=== PATIENT | male | born 1930 | race Caucasian/White ===

== ENCOUNTER → 2017-03-11 | Outpatient (CLI) | payer MEDICARE ==
[~2017-03-11] MED LIST: /TAMS4CA OR; ACET65TA OR; ADVI200C5 PO; AMLO10TA2 PO; AMLO10TAB OR; ASPI1TAB PO; ASPI81TA83 OR; AUGM875T27 PO; Advil PO; BENA25CA PO; FOLI1TAB OR; LISI10TA4 OR; LISI10TA4 PO; Macrobid PO; OXYB5TAB10 PO; VITMTA PO
--- NOTE | 2017-03-11 12:10 | REP ---
DUPLEX EXTREMITY VENOUS ULTRASOUND, LEFT LOWER EXTREMITY: HISTORY: Left leg pain and swelling times 1 week. Question DVT. FINDINGS: The deep veins are anechoic and fully compressible from the groin to the popliteal fossa in the left lower extremity. Color flow imaging is homogeneous. Spectral Doppler interrogation demonstrates intact respiratory variation in flow and normal manual augmentation of flow. There is no evidence of deep vein thrombosis. There is a left groin lymph node visible to 0.2 x 0.6 x 1.2 cm. This does not have suspicious characteristics. IMPRESSION: Negative left lower extremity duplex venous ultrasound. No evidence of deep vein thrombosis. Signed by Trenton Chan MD 03/11/2017 12:40 P
== END ==
LOC: M RAD 10:43
PROVIDERS: ATTEND Physician Assistant
DX: R60.0 Localized edema (principal); L03.116 Cellulitis of left lower limb

== ENCOUNTER → 2018-02-02 | Outpatient (CLI) | payer MEDICARE ==
[2018-02-02 16:16] LABS: ALBUMIN 4.2 GM/DL (3.2-5.2); ANION GAP 9 MEQ/L (8-16); BLOOD UREA NITROGEN 17 MG/DL (7-18); CARBON DIOXIDE LEVEL 28 MEQ/L (21-32); CHLORIDE LEVEL 103 MEQ/L (98-107); CREATININE FOR GFR 0.76 MG/DL (0.70-1.30); GLOMERULAR FILTRATION RATE > 60.0 (>35); GLUCOSE, FASTING 123 MG/DL (70-100); PHOSPHORUS LEVEL 3.2 MG/DL (2.5-4.9); SODIUM LEVEL 140 MEQ/L (136-145)
== END ==
LOC: M WUC 08:12
DX: R22.43 Localized swelling, mass and lump, lower limb, bilateral (principal)
CPT/HCPCS: 80069

== ENCOUNTER 2018-05-28 07:47 | Emergency (ER) | payer MEDICARE ==
[~2018-05-28] VITALS: Ht 180.3 cm; Wt 76.4 kg
[~2018-05-28 07:47] MED LIST changes: -AMLO10TA2 PO; +AMLO10TA5 PO
[2018-05-28] MEDS ORDERED: OMEP40CA2 PO (07:55)
[2018-05-28] MEDS ORDERED: LISI10TA4 PO (07:55)
[2018-05-28] MEDS ORDERED: BACL10TA2 PO (07:55)
[2018-05-28] MEDS ORDERED: OXYB5TAB10 PO (07:55)
[2018-05-28 09:16] VITALS: BP 145/67
--- NOTE | 2018-05-28 09:40 | REP ---
Clinical: Acute left hip pain. Technique: Frontal view of the pelvis with neutral and frog lateral views of the left hip. Findings: Generalized age-related osteopenia and degenerative changes are appreciated. There is no evidence for acute fracture or dislocation. Left hip demonstrates mild joint space narrowing with subtle marginal spurring at the acetabulum essentially symmetric when compared to the right hip on pelvic radiograph. Impression: Generalized osteopenia and degenerative changes. No acute fracture or dislocation. Electronically Signed by Jeb Tian MD 05/28/2018 08:49 A
--- NOTE | 2018-05-28 09:41 | REP ---
Clinical: Lower back pain. Technique: AP, lateral, bilateral oblique and coned-down views of the lumbosacral spine. Findings: Age-related osteopenia is appreciated. Moderate to advanced multilevel degenerative disc osteophyte complexes noted. Findings include endplate sclerosis, disc space narrowing, hypertrophic facet changes, and marginal osteophyte formation. Alignment and lordosis relatively maintained. No spondylolysis or spondylolisthesis noted. No acute fracture / compression injury subluxation identified. Impression: Age-related osteopenia and moderate to advanced multilevel degenerative spondylosis. No acute fracture / compression injury or subluxation. Electronically Signed by Jeb Tian MD 05/28/2018 08:51 A
== END 2018-05-28 09:21 | disposition home or self-care (01) ==
LOC: M ED 07:47
DX: S76.012A Strain of muscle, fascia and tendon of left hip, initial encounter (principal); X58.XXXA Exposure to other specified factors, initial encounter; Y92.89 Other specified places as the place of occurrence of the external cause; M54.5 Low back pain; I10 Essential (primary) hypertension; N40.0 Benign prostatic hyperplasia without lower urinary tract symptoms; Z79.899 Other long term (current) drug therapy; Z79.82 Long term (current) use of aspirin; Z88.1 Allergy status to other antibiotic agents; Z91.013 Allergy to seafood; Z87.891 Personal history of nicotine dependence

== ENCOUNTER → 2020-08-23 | Outpatient (CLI) | payer MEDICARE ==
[~2020-08-23] MED LIST changes: -/TAMS4CA OR; -AMLO10TA5 PO; +AMLO1TAB25 PO; -ASPI1TAB PO; +ASPI81TA26 PO; +BACL10TA2 PO; +FLOM0.4C39 OR; +LISI10TA22 PO; -LISI10TA4 PO; +OMEP40CA97 PO
--- NOTE | 2020-08-23 14:57 | REP ---
INDICATION: CONTUSION COMPARISON: None. TECHNIQUE: AP and lateral views of the left forearm. FINDINGS: Osseous structures are intact and without acute fracture or dislocation. Vascular calcifications noted. No subcutaneous emphysema or foreign body. Soft tissue swelling over the distal forearm suggested. IMPRESSION: . No acute fracture or dislocation. <Electronically signed by Jeb Tian > 08/23/20 1814
== END ==
LOC: M WUC 14:19
PROVIDERS: ATTEND Physician Assistant
DX: S50.12XA Contusion of left forearm, initial encounter (principal); Y92.9 Unspecified place or not applicable; Y93.9 Activity, unspecified; Y99.9 Unspecified external cause status